=== PATIENT | female | born 1960 | race American Indian/Alaskan Native ===

== ENCOUNTER 2017-06-13 22:16 | Emergency (ER) | payer BC ==
[2017-06-13 23:19] VITALS: BMI 26.6
[2017-06-13 23:21] VITALS: PULSE 68; RESP 18; TEMP 98.1; O2SAT 98
--- NOTE | 2017-06-13 23:55 | ED PDOC ---
Arrival/HPI - General Chief Complaint: ENT Problem Time Seen by Provider: 06/13/17 23:53 Historian: Patient - History of Present Illness Narrative History of Present Illness (Text): 06/13/17 23:54 57 y/o female, pmh including htn/hyperlipidemia, nkda, c/o left ear pain and clogging sensation x 6 days with no fall or trauma. Aching pain, no chest pain or shortness of breath, no palpitation, no numbness or tingling, no pain medication taken at home, no ear discharge, no fever or chills, no chest pain or shortness of breath, no other medical or psychological complaints. Past Medical History - Provider Review Nursing Documentation Reviewed: Yes - Infectious Disease Hx of Infectious Diseases: None - Cardiac Hx Cardiac Disorders: Yes Hx CA: Yes Hx Hypertension: Yes - Pulmonary Hx Respiratory Disorders: No - Neurological Hx Neurological Disorder: No - HEENT Hx HEENT Disorder: No - Renal Hx Renal Disorder: No - Endocrine/Metabolic Hx Endocrine Disorders: No - Hematological/Oncological Hx Blood Disorders: No - Integumentary Hx Dermatological Disorder: No - Musculoskeletal/Rheumatological Other/Comment: L ANKLE SPRAIN - Gastrointestinal Hx Gastrointestinal Disorders: No - Genitourinary/Gynecological Hx Genitourinary Disorders: No - Psychiatric Hx Psychophysiologic Disorder: No Hx Substance Use: No - Surgical History Hx Section: Yes Hx Coronary Artery Bypass Graft: Yes Hx Musculoskeletal Surgery: Yes - Anesthesia Hx Anesthesia: Yes Hx Anesthesia Reactions: No Hx Malignant Hyperthermia: No Family/Social History - Physician Review Nursing Documentation Reviewed: Yes Family/Social History: Unknown Family HX Smoking Status: Never Smoked Hx Alcohol Use: Yes Hx Substance Use: No Allergies/Home Meds Allergies/Adverse Reactions: Allergies No Known Allergies Allergy (Verified 01/11/17 12:49) Home Medications: Home Meds Medication Instructions Recorded Confirmed Aspirin [Ecotrin] 81 mg PO DAILY 03/26/16 06/13/17 Metoprolol Tartrate [Lopressor] 12.5 mg PO TID 03/26/16 06/13/17 Rosuvastatin Calcium [Crestor] 20 mg PO DAILY 03/26/16 06/13/17 amLODIPine [Norvasc] 5 mg PO DAILY 03/26/16 06/13/17 Review of Systems - Review of Systems Constitutional: absent: Fatigue Eyes: absent: Vision Changes ENT: Other (ear pain). absent: Hearing Changes Respiratory: absent: SOB, Cough Cardiovascular: absent: Chest Pain Gastrointestinal: absent: Abdominal Pain, Nausea, Vomiting Skin: absent: Rash, Pruritis, Skin Lesions Hemo/Lymphatic: absent: Adenopathy Physical Exam Vital Signs Reviewed: Yes Vital Signs Temp Pulse Resp BP Pulse Ox 06/13/17 23:24 189/81 H 06/13/17 23:20 98.1 F 68 18 190/78 H 98 Temperature: Afebrile Blood Pressure: Hypertensive Pulse: Regular Respiratory Rate: Normal Appearance: Positive for: Well-Appearing, Non-Toxic, Comfortable Pain Distress: Mild Mental Status: Positive for: Alert and Oriented X 3 - Systems Exam Head: Present: Atraumatic, Normocephalic Pupils: Present: PERRL Extroacular Muscles: Present: EOMI Conjunctiva: Present: Normal Ears: Present: Other (Ears: lt. TM erythematous and visible fluid behind the TM , rt. TM jeff color and intact, bilateral auditory canals non-erythematous, no mastoid tenderness. ) Mouth: Present: Moist Mucous Membranes Neck: Present: Normal Range of Motion Respiratory/Chest: Present: Clear to Auscultation, Good Air Exchange. No: Respiratory Distress, Accessory Muscle Use Cardiovascular: Present: Regular Rate and Rhythm, Normal S1, S2. No: Murmurs Abdomen: Present: Normal Bowel Sounds. No: Tenderness, Distention, Peritoneal Signs Back: Present: Normal Inspection Upper Extremity: Present: Normal Inspection. No: Cyanosis, Edema Lower Extremity: Present: Normal Inspection. No: Edema Neurological: Present: GCS=15, CN II-XII Intact, Speech Normal Skin: Present: Warm, Dry, Normal Color. No: Rashes Psychiatric: Present: Alert, Oriented x 3, Normal Insight, Normal Concentration Medical Decision Making ED Course and Treatment: 06/14/17 00:06 -motrin/augmentin -Discharge home with augmentin, tylenol, stay hydrated, bed rest, follow up with your own pmd and ENT within 2 days, return to the ER for any new or worsening signs or symptoms. - Medication Orders Current Medication Orders: Amoxicillin/Clavulanate Potassium (Augmentin 875 Mg-125 Mg Tab) 1 tab PO STAT STA PRN Reason: Protocol Stop: 06/14/17 00:03 - PA / MONUMENT LETTERER / Resident Statement / has reviewed & agrees with the documentation as recorded. Disposition/Present on Arrival - Present on Arrival Any Indicators Present on Arrival: No History of DVT/PE: No History of Uncontrolled Diabetes: No Urinary Catheter: No History of Decub. Ulcer: No History Surgical Site Infection Following: None - Disposition Have Diagnosis and Disposition been Completed?: Yes Diagnosis: Otitis media Disposition: HOME/ ROUTINE Disposition Time: 23:55 Patient Plan: Discharge Condition: GOOD Additional Instructions: -Discharge home with augmentin, tylenol, stay hydrated, bed rest, follow up with your own pmd and ENT within 2 days, return to the ER for any new or worsening signs or symptoms. Prescriptions: Acetaminophen [Tylenol 325mg tab] 2 tab PO QID PRN #30 tab PRN Reason: Other Amoxicillin/Clavulanate [Augmentin 875 MG-125 MG] 1 tab PO BID #20 tab Referrals: Alfie Napoles DO [Staff Provider] - Follow up with primary Forms: WORK NOTE
[2017-06-14] MEDS ORDERED: Amoxicillin-Clav 875-125 mg Tab PO STA (00:02)
[2017-06-14 00:26] VITALS: BP 159/90
== END 2017-06-14 00:26 | disposition home or self-care (01) ==
LOC: ED 22:16
DX: H66.92 Otitis media, unspecified, left ear (principal); I10 Essential (primary) hypertension; E78.5 Hyperlipidemia, unspecified

== ENCOUNTER 2019-01-07 13:08 | Outpatient (CLI) | payer BC | END 2019-01-07 13:09 | disposition home or self-care (01) | LOC: RAD 13:08 | DX: Z12.31 Encounter for screening mammogram for malignant neoplasm of breast (principal); Z13.820 Encounter for screening for osteoporosis ==

== ENCOUNTER 2019-01-25 11:20 | Outpatient (CLI) | payer BC | END 2019-01-25 11:21 | disposition home or self-care (01) | LOC: LAB 11:20 ==

== ENCOUNTER 2019-02-05 10:17 | Emergency (ER) | payer BC ==
[2019-02-05 10:18] VITALS: BMI 26.6
[2019-02-05 10:33] VITALS: RESP 18; O2SAT 99
--- NOTE | 2019-02-05 10:56 | ED PDOC ---
Arrival/HPI - General Chief Complaint: Female Genitourinary Time Seen by Provider: 02/05/19 10:32 Historian: Patient - History of Present Illness Narrative History of Present Illness (Text): 02/05/19 10:55 59-year-old female with past medical history of hypertension, presents the emergency room complaining of 2-day history of dysuria, urinary frequency, and low back pain. Patient states she believes she has a UTI and she has had similar symptoms in the past related to UTI. Otherwise she reports no fever, chills, nausea, vomiting, abdominal pain, vaginal bleeding, vaginal discharge. She has no other complaints. PMD Black Past Medical History - Infectious Disease Hx of Infectious Diseases: None - Reproductive Menopause: Yes - Cardiac Hx Cardiac Disorders: Yes Hx SC: Yes Hx Hypertension: Yes - Pulmonary Hx Respiratory Disorders: No - Neurological Hx Neurological Disorder: No - HEENT Hx HEENT Disorder: No - Renal Hx Renal Disorder: No - Endocrine/Metabolic Hx Endocrine Disorders: No - Hematological/Oncological Hx Blood Disorders: No - Integumentary Hx Dermatological Disorder: No - Musculoskeletal/Rheumatological Other/Comment: L ANKLE SPRAIN - Gastrointestinal Hx Gastrointestinal Disorders: No - Genitourinary/Gynecological Hx Genitourinary Disorders: No - Psychiatric Hx Psychophysiologic Disorder: No Hx Substance Use: No - Surgical History Hx Section: Yes Hx Coronary Artery Bypass Graft: Yes Hx Musculoskeletal Surgery: Yes - Anesthesia Hx Anesthesia: Yes Hx Anesthesia Reactions: No Hx Malignant Hyperthermia: No Family/Social History Family/Social History: No Known Family HX Smoking Status: Never Smoked Hx Alcohol Use: Yes Hx Substance Use: No Allergies/Home Meds Allergies/Adverse Reactions: Allergies No Known Allergies Allergy (Verified 02/05/19 10:33) Home Medications: Home Meds Medication Instructions Recorded Confirmed Aspirin [Ecotrin] 81 mg PO DAILY 03/26/16 06/13/17 Metoprolol Tartrate [Lopressor] 12.5 mg PO TID 03/26/16 06/13/17 Rosuvastatin Calcium [Crestor] 20 mg PO DAILY 03/26/16 06/13/17 amLODIPine [Norvasc] 5 mg PO DAILY 03/26/16 06/13/17 Review of Systems - Review of Systems Constitutional: absent: Fatigue, Fevers Cardiovascular: absent: Chest Pain, Palpitations Gastrointestinal: absent: Abdominal Pain, Nausea, Vomiting Genitourinary Female: Dysuria, Frequency. absent: Hematuria, Vaginal Bleeding, Vaginal Discharge Musculoskeletal: Back Pain. absent: Arthralgias, Neck Pain Skin: absent: Rash, Skin Lesions Neurological: absent: Headache, Dizziness Physical Exam Vital Signs Temp Pulse Resp BP Pulse Ox 02/05/19 10:29 97.9 F 94 H 18 165/76 H 99 Temperature: Afebrile Blood Pressure: Hypertensive Pulse: Regular Respiratory Rate: Normal Appearance: Positive for: Well-Appearing, Non-Toxic, Comfortable Pain Distress: None Mental Status: Positive for: Alert and Oriented X 3 - Systems Exam Head: Present: Atraumatic, Normocephalic Pupils: Present: PERRL Extroacular Muscles: Present: EOMI Conjunctiva: Present: Normal Mouth: Present: Moist Mucous Membranes Neck: Present: Normal Range of Motion Respiratory/Chest: Present: Clear to Auscultation, Good Air Exchange. No: Respiratory Distress, Accessory Muscle Use Cardiovascular: Present: Regular Rate and Rhythm, Normal S1, S2. No: Murmurs Abdomen: No: Tenderness, Distention, Peritoneal Signs Back: Present: Normal Inspection. No: CVA Tenderness Upper Extremity: Present: Normal Inspection. No: Cyanosis, Edema Lower Extremity: Present: Normal Inspection. No: Edema Neurological: Present: GCS=15, CN II-XII Intact, Speech Normal Skin: Present: Warm, Dry, Normal Color. No: Rashes Psychiatric: Present: Alert, Oriented x 3, Normal Insight, Normal Concentration Medical Decision Making ED Course and Treatment: 02/05/19 10:53 Plan : - UA - Urine cx 02/05/19 11:47 FS 119 UA +UTI On reevaluation, patient remains awake alert and oriented 3 in no acute distress. Diagnostic results and diagnosis of UTI discussed with the patient. Patient medicated with Macrobid p.o. and Pyridium p.o. Advised to follow up with primary care physician in 1-2 days without fail. Advised to take medication as prescribed. Return to the emergency room at any time for any new or worsening symptoms. Patient states she fully agrees with and understands discharge instructions. States that she agrees with the plan and disposition. Verbalized and repeated discharge instructions and plan. I have given the patient opportunity to ask any additional questions. - PA / MOTOR INSTALLER / Resident Statement MD/DO has reviewed & agrees with the documentation as recorded. Disposition/Present on Arrival - Present on Arrival Any Indicators Present on Arrival: No History of DVT/PE: No History of Uncontrolled Diabetes: No Urinary Catheter: No History of Decub. Ulcer: No History Surgical Site Infection Following: None - Disposition Have Diagnosis and Disposition been Completed?: Yes Diagnosis: UTI (urinary tract infection) Disposition: HOME/ ROUTINE Disposition Time: 11:45 Patient Plan: Discharge Condition: STABLE Discharge Instructions (ExitCare): Urinary Tract Infection, Adult (DC) Additional Instructions: Thank you for letting us take care of you today. You were treated for UTI. The emergency medical care you received today was directed at your acute symptoms. If you were prescribed any medication, please fill it and take as directed. It may take several days for your symptoms to resolve. Return to the Emergency Department if your symptoms worsen, do not improve, or if you have any other problems. Please contact your doctor in 2 days for re-evaluation and follow up. Bring any paperwork you were given at discharge with you along with any medications you are taking to your follow up visit. Our treatment cannot replace ongoing medical care by a primary care provider (PCP) outside of the emergency department. Thank you for allowing the [facility] team to be part of your care today. If you had a urine culture: It will take several days for the results, if any change in treatment is needed we will contact you. Prescriptions: Nitrofurantoin Macrocrystals [Macrobid] 100 mg PO BID #14 cap Phenazopyridine [Pyridium] 200 mg PO BID #6 tab Referrals: Mari Fong MD [Primary Care Provider] - Follow up with primary Forms: [place] ([place]), WORK NOTE
[2019-02-05 11:14] LABS: URINE BILIRUBIN NEGATIVE (NEGATIVE); URINE BLOOD LARGE (NEGATIVE); URINE GLUCOSE (UA) NEGATIVE (NEGATIVE); URINE LEUKOCYTE ESTERASE LARGE Leu/uL (NEGATIVE); URINE PROTEIN 100 mg/dL (<30 mg/dL); URINE UROBILINOGEN 0.2 E.U./dL (<1 E.U./dL)
[2019-02-05 11:30] LABS: URINE APPEARANCE CLEAR (CLEAR); URINE COLOR YELLOW (YELLOW)
[2019-02-05 11:58] LABS: URINE BACTERIA LARGE /hpf; URINE RBC TNTC /hpf (0-2); URINE WBC TNTC /hpf (0-6)
[2019-02-05 12:09] VITALS: BP 142/79; PULSE 82; TEMP 98
== END 2019-02-05 12:09 | disposition home or self-care (01) ==
LOC: ED 10:17
DX: N39.0 Urinary tract infection, site not specified (principal); I25.2 Old myocardial infarction; I10 Essential (primary) hypertension